=== PATIENT | female | born 1980 | race Caucasian/White ===

== ENCOUNTER 2016-10-07 10:21 | Emergency (ER) | payer MEDICAID ==
[~2016-10-07] VITALS: Wt 68.0 kg
[~2016-10-07 10:21] MED LIST: PREN1TAB49 PO
[2016-10-07] MEDS ORDERED: ONDANSETRON (ODT) 4 MG TAB ODT STA (10:38)
--- NOTE | 2016-10-07 10:52 | ERD ---
ER Documentation Chief Complaint Date/Time DATE: 10/07/16 TIME: 10:49 Chief Complaint VAG BLEED SINCE THIS MORNING. MILD ABD PAIN . NO N/V. NO DYSURIA HPI Is a 36-year-old female who presents the emergency department today complaining of vaginal spotting that started this morning. She states the bleeding has stopped. States that she had an ultrasound 1 week ago and was told that it was normal. States she has some nausea and vomiting. States she was sent here by her primary care clinic. Denies any abdominal pain, fevers or chills, dysuria. ROS All systems reviewed and are negative except as per history of present illness. Medications Home Meds Active Scripts Acetaminophen* (Tylophen*) 500 Mg Capsule, 1 CAP PO Q6H Y for PAIN AND OR ELEVATED TEMP, #30 CAP Prov:TORIBIO FERNANDEZ PA-C 10/07/16 Ondansetron Hcl* (Zofran*) 4 Mg Tablet, 4 MG PO Q6H for NAUSEA AND/OR VOMITING, #30 TAB Prov:TORIBIO FERNANDEZ PA-C 10/07/16 Cephalexin* (Keflex*) 500 Mg Capsule, 500 MG PO QID for 7 Days, CAP Prov:TORIBIO FERNANDEZ PA-C 10/07/16 Reported Medications Vits W-Ca,Fe,Fa(<1MG) () 1 Tab Tablet, 1 TAB PO DAILY 01/13/12 Allergies Allergies: Coded Allergies: No Known Allergy (Unverified , 01/13/12) PMhx/Soc History of Surgery: No Anesthesia Reaction: No Hx Neurological Disorder: No Hx Respiratory Disorders: No Hx Cardiac Disorders: No Hx Psychiatric Problems: No Hx Miscellaneous Medical Probl: No Hx Alcohol Use: No Hx Substance Use: No Hx Tobacco Use: No Smoking Status: Never smoker Physical Exam Vitals Vital Signs Date Time Temp Pulse Resp B/P Pulse Ox O2 Delivery O2 Flow Rate FiO2 10/07/16 10:25 98.5 98 21 150/81 98 Physical Exam Const: No acute distress Head: Atraumatic Eyes: Normal Conjunctiva ENT: Normal External Ears, Nose and Mouth. Neck: Full range of motion..~ No meningismus. Resp: Clear to auscultation bilaterally Cardio: Regular rate and rhythm, no murmurs Abd: Soft, non tender, non distended. Normal bowel sounds Skin: No petechiae or rashes Back: No midline or flank tenderness Ext: No cyanosis, or edema Neur: Awake and alert Psych: Normal Mood and Affect Result Diagram: 10/07/16 1045 Results 24 hrs Laboratory Tests Test 10/07/16 10:45 White Blood Count 12.610^3/ul Red Blood Count 4.7610^6/ul Hemoglobin 13.7g/dl Hematocrit 40.6% Mean Corpuscular Volume 85.3fl Mean Corpuscular Hemoglobin 28.8pg Mean Corpuscular Hemoglobin Concent 33.7g/dl Red Cell Distribution Width 13.2% Platelet Count 24468^3/UL Mean Platelet Volume 10.6fl Neutrophils % 78.8% Lymphocytes % 15.4% Monocytes % 3.8% Eosinophils % 1.1% Basophils % 0.3% Nucleated Red Blood Cells % 0.0/100WBC Neutrophils # 9.910^3/ul Lymphocytes # 1.910^3/ul Monocytes # 0.510^3/ul Eosinophils # 0.110^3/ul Basophils # 0.010^3/ul Nucleated Red Blood Cells # 0.010^3/ul Urine Color YELLOW Urine Clarity SLIGHTLY CLOUDY Urine pH 5.0 Urine Specific [place] 1.030 Urine Ketones TRACEmg/dL Urine Nitrite NEGATIVEmg/dL Urine Bilirubin NEGATIVEmg/dL Urine Urobilinogen NEGATIVEmg/dL Urine Leukocyte Esterase 1+Celena/ul Urine Microscopic RBC 1/HPF Urine Microscopic WBC 8/HPF Urine Squamous Epithelial Cells MANY/HPF Urine Mucus MODERATE/HPF Urine Hemoglobin 3+mg/dL Urine Glucose NEGATIVEmg/dL Urine Total Protein 1+mg/dl Beta HCG, Quantitative 970111.0mIU/ml Current Medications Medications (Trade) Dose Ordered Sig/Sacha Route PRN Reason Start Time Stop Time Status Last Admin Dose Admin Ondansetron HCl (Zofran Odt) 4 mg ONCE STAT ODT 10/07/16 10:38 10/07/16 10:40 DC 10/07/16 10:47 DIAGNOSTIC IMAGING REPORT Patient: KITTY SANTO : 1980 Age: 36 Sex: F MR #: [id number] DOS: 10/07/16 1038 Ordering MD: TORIBIO FERNANDEZ PA-C Location: [facility] Room/Bed: PROCEDURE: US OB. CLINICAL INDICATION: Vaginal bleeding TECHNIQUE: Transabdominal imaging of the gravid uterus is available for review COMPARISON: None available FINDINGS: There is a single intrauterine demonstrating a heart rate of 171 bpm. The crown-rump length equals 2.28 cm, giving an estimated gestational age of 9 weeks 0 days by ultrasound criteria. No subchorionic hemorrhage is identified. The ovaries are unremarkable. IMPRESSION: Single live intrauterine with an estimated gestational age of 9 weeks 0 days by ultrasound criteria and an estimated date of delivery of 05/12/2017. RPTAT: HH .Debora Sinha MD, MD Date Time Electronically viewed and signed by .Debora Sinha MD, MD on 10/07/2016 11 :30 .G/ CC: TORIBIO FERNANDEZ PA-C Procedures/MDM This is a who presents to the emergency department today complaining of vaginal bleeding. Patient states she is approximately 8 weeks. Given this I did obtain a complete OB workup. Laboratory work shows a mildly elevated white blood cell count. She is not anemic. Platelets are within normal limits. UA shows 1+ leukocyte esterase. Beta quant hCG 11 4780.0 Rh status B+ Ultrasound shows a single live intrauterine with an estimated gestational age of 9 weeks and 0 days by ultrasound criteria and estimated date of delivery of May 12, 2017. heart rate is 171 bpm. There is no subchorionic hemorrhage identified Patient symptoms at this time is consistent with vaginal bleeding in early . Other differentials to consider early normal versus early failed , I have lower suspicion for that given that patient has stopped bleeding and she has an IUP with good heart tones Patient also has a urinary tract infection. I will give her prescription for Keflex as well as Zofran.. Patient is not actively vomiting. I do not feel that she requires IV fluids at this time. Patient is afebrile and otherwise well-appearing. I have low suspicion for ectopic , tubo ovarian abscess, ovarian torsion. I have explained the results to the patient. She may get a repeat beta quant in 48 hours if bleeding returns. At this time the patient is stable for discharge and outpatient management. Patient should follow up with their PCP in the next 1-2 days. They may return to the emergency department sooner for any persistent or worsening of symptoms. Patient understood and agreed with the plan. Departure Diagnosis: Primary Impression: Vaginal bleeding in patient at less than 20 weeks gestation Condition: TORIBIO Huitron PA-C Oct 07, 2016 10:52
[2016-10-07 10:57] LABS: ADD SCAN DIFF NO
[2016-10-07 11:11] LABS: BASOPHILS % 0.3 % (0.0-2.0); EOSINOPHILS # 0.1 10^3/ul (0.0-0.5); EOSINOPHILS % 1.1 % (0.0-7.0); HEMATOCRIT 40.6 % (37.0-47.0); HEMOGLOBIN 13.7 g/dl (12.0-16.0); LYMPHOCYTES # 1.9 10^3/ul (0.8-2.9); LYMPHOCYTES % 15.4 % (15.0-51.0); MEAN CORPUSCULAR HEMOGLOBIN 28.8 pg (29.0-33.0); MEAN CORPUSCULAR HGB CONC 33.7 g/dl (32.0-37.0); MEAN CORPUSCULAR VOLUME 85.3 fl (82.0-101.0); MEAN PLATELET VOLUME 10.6 fl (7.4-10.4); MONOCYTE # 0.5 10^3/ul (0.3-0.9); MONOCYTES % 3.8 % (0.0-11.0); NEUTROPHIL # 9.9 10^3/ul (1.6-7.5); NEUTROPHILS % 78.8 % (39.0-77.0); PLATELET COUNT 354 10^3/UL (140-415); RED BLOOD COUNT 4.76 10^6/ul (4.20-5.40); RED CELL DISTRIBUTION WIDTH 13.2 % (11.5-14.5); WHITE BLOOD COUNT 12.6 10^3/ul (4.8-10.8)
--- NOTE | 2016-10-07 11:30 | RADRPT ---
PROCEDURE: US OB. CLINICAL INDICATION: Vaginal bleeding TECHNIQUE: Transabdominal imaging of the gravid uterus is available for review COMPARISON: None available FINDINGS: There is a single intrauterine demonstrating a heart rate of 171 bpm. The crown-rump kaela th equals 2.28 cm, giving an estimated gestational age of 9 weeks 0 days by ultrasound criteria. No subchorionic hemorrhage is identified. The ovaries are unremarkable. IMPRESSION: Single live intrauterine with an estimated gestational age of 9 weeks 0 days by ultrasound criteria and an estimated date of delivery of 05/12/2017. RPTAT: HH .Debora Sinha MD, MD Date Time Electronically viewed and signed by .Debora Sinha MD, MD on 10/07/2016 11:30 .G/
[2016-10-07 11:32] LABS: ADD UMIC YES; UR ASCORBIC ACID 40 mg/dL (NEGATIVE); UR BILIRUBIN (Dip) NEGATIVE (NEGATIVE); UR BLOOD (Dip) 3+ mg/dL (NEGATIVE); UR CLARITY SLIGHTLY CLOUDY (CLEAR); UR COLOR YELLOW (YELLOW); UR GLUCOSE (Dip) NEGATIVE (NEGATIVE); UR KETONES (Dip) TRACE mg/dL (NEGATIVE); UR LEUKOCYTE ESTERASE (Dip) 1+ Leu/ul (NEGATIVE); UR MUCUS MODERATE /HPF (NONE SEEN); UR NITRITE (Dip) NEGATIVE (NEGATIVE); UR RBC 1 /HPF (0-5); UR SQUAMOUS EPITHELIAL CELL MANY /HPF (FEW); UR TOTAL PROTEIN (Dip) 1+ mg/dl (NEGATIVE); UR UROBILINOGEN (Dip) NEGATIVE (NEGATIVE)
[2016-10-07] MEDS ORDERED: CEPH-443 PO (13:06)
[2016-10-07] MEDS ORDERED: ONDA4TAB8 PO (13:07)
[2016-10-07] MEDS ORDERED: ACET500C5 PO (13:08)
== END 2016-10-07 13:15 | disposition home or self-care (01) ==
LOC: FTE 10:21 → MERGE 10:21 → FTE 13:15
DX: O20.9 Hemorrhage in early pregnancy, unspecified (principal); Z3A.09 9 weeks gestation of pregnancy
CPT/HCPCS: 76801; 81001; 84702; 85025; 86900; 86901; Z7610; 36415

== ENCOUNTER 2017-04-04 17:45 | Inpatient (IN) | END 2017-04-06 22:22 | disposition home or self-care (01) | DRG 778 ==

== ENCOUNTER 2017-04-29 07:50 | Inpatient (IN) | END 2017-05-02 13:45 | disposition home or self-care (01) | DRG 766 ==